=== PATIENT | male | born 1960 | race Caucasian/White ===

== ENCOUNTER 2017-02-22 12:24 | Emergency (ER) | payer OTHER, BC ==
[~2017-02-22] VITALS: Ht 177.8 cm; Wt 134.0 kg
[~2017-02-22 12:24] MED LIST: GLC500 PO; GLIM4TAB2 PO; LISI-786 PO; NAPR1TAB9 PO; POLY335019 PO; ZNTT/150 PO
[2017-02-22 12:30] VITALS: TEMP 36.6; Ht 177.8 cm; Wt 134.0 kg
[2017-02-22] MEDS ORDERED: METF-384 PO (12:35)
--- NOTE | 2017-02-22 12:57 | EMERGENCY ROOM VISIT NOTE ---
ED Visit Note First contact with patient: 12:41 CHIEF COMPLAINT: Right great toe pain HISTORY OF PRESENT ILLNESS: This 56-year-old male patient presents to the emergency department, ambulatory, from work, complaining of swelling and pain in the right great toe at rest and worse with weight bearing. The patient was using a 30 lb pipe wrench at work when he accidentally dropped it onto the top of his right great toe. The wrench fell approximately 2.5 feet. He immediately noticed pain and bruising in the right great toe at the IP joint and a hematoma under the nail. The patient rates the pain as throbbing at rest, sharp with weight-bearing and 2/10. The patient has not had relief of the pain, but states it is improving. He became concerned because he is diabetic and wants to ensure he does not have an infection. The patient is able to walk. No numbness or weakness. No ankle pain. There are no lacerations of the foot. The patient is able to move all of their toes and their ankle without pain. No previous fracture to this foot. REVIEW OF SYSTEMS: GENERAL: A 6 system review of systems was completed with positives and pertinent negatives in the HPI. ALLERGIES: Sulfa MEDICATIONS: glimepiride, lisinopril, miralax, ranitidine, metformin, Januvia PMH: DM, HTN, GERD SOCIAL HISTORY: The patient lives locally with family. 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 The patient does admit to chewing tobacco and smoking approximately 5 cigarettes per day. He denies drug and alcohol use. PHYSICAL EXAM: Vital Signs: Reviewed Nurse's notes, vital signs stable. GENERAL : This is a 56-year-old obese white male, in no acute distress, but appears in pain, well-developed, well-nourished. MUSCULOSKELATAL: There is no visual deformity of the right foot. There is mild erythema and ecchymosis over the IP joint of the right great toe with subungual hematoma. There is no warmth. There is tenderness and swelling over the right great toe. There is no tenderness over the lateral or medial malleolus. No tenderness of the tib/fib. The range of motion of the toes is full. There is no tenderness over the plantar fascia. The skin is intact and there are no lacerations or puncture wounds. Dorsalis pedis pulse 2+. Capillary refill less than 2 seconds. RADIOLOGY: X-Ray Right Great Toe: R TOE(S) MIN 2 VIEWS CLINICAL HISTORY: crush injury, right great toe trauma COMPARISON: None. DISCUSSION: Nondisplaced oblique fracture distal phalanx great toe. No evidence for dislocation. Mild soft tissue edema. IMPRESSION: Nondisplaced fracture distal phalanx great toe. Soft tissue edema. No evidence for dislocation. EMERGENCY DEPARTMENT COURSE: I examined the patient. An X-ray of the right great toe was reviewed by myself and radiologist and reveals nondisplaced fracture of the distal phalanx of the right great toe. The patient was placed in postop shoe and offered crutches. He declines and states he does have some crutches at home if he needs them. The patient was steady on his feet and the postop shoe. [employer] paperwork was completed and return to the patient. The patient was discharged home in good condition. DIFFERENTIAL DIAGNOSIS: Contusion, fracture, sprain, strain, and others DIAGNOSIS: Fracture of the distal phalange of the right great toe TREATMENT: ORTHOPEDIC INSTRUCTIONS: Ibuprofen(Motrin, Advil) may be used for fever or pain. Use 600mg every six hours as needed. Take with food. Avoid using more than 2400mg in a 24 hour period. Do not use 2400mg per day for more than three consecutive days without physician direction. Prolonged inappropriate use can lead to stomach upset or ulcers. (AND/OR) Acetaminophen(Tylenol) may be used for fever or pain. Use 1000mg every six hours as needed. Avoid using more than 3000mg in a 24 hour period. Ice compresses for 20 minutes at a time four times daily for 2-3 days. Use the crutches you have at home if needed to avoid weight-bearing. Rest and elevate your injury. Wear the post-op shoe until cleared by Worker's Comp/Orthopedics. Return to the ER immediately for any numbness, tingling, severe pain, extreme swelling in the extremity or as needed. Call [facility], [phone], today to arrange follow up for your injury. Follow-up as directed by your company with Worker's Compensation. Current/Historical Medications Scheduled Glimepiride (Glimepiride), 4 MG PO BID Lisinopril & Hydrochlorothiazi (Zestoretic), 1 TAB PO QAM Metformin Hcl (Glucophage), 1,000 MG PO BID Naproxen (Aleve), 440 MG PO PRN Scheduled PRN Polyethylene Glycol 3350 (Miralax), 17 GM PO DAILY PRN for Constipation Ranitidine (Zantac), 150 MG PO DAILY PRN for Indigestion Allergies Coded Allergies: Sulfa Drugs (Verified Allergy, Unknown, HIVES, 02/22/17) Vital Signs Date Time Temp Pulse Resp B/P (MAP) Pulse Ox O2 Delivery O2 Flow Rate FiO2 02/22/17 13:55 75 20 190/98 96 02/22/17 12:30 36.6 76 18 204/105 96 Room Air Departure Information Impression Primary Impression: Fracture of distal phalanx of right great toe Dispostion Home / Self-Care Condition GOOD Referrals No Doctor, Assigned (PCP) Patient Instructions ED Fx Toe Closed, [facility] Additional Instructions ORTHOPEDIC INSTRUCTIONS: Ibuprofen(Motrin, Advil) may be used for fever or pain. Use 600mg every six hours as needed. Take with food. Avoid using more than 2400mg in a 24 hour period. Do not use 2400mg per day for more than three consecutive days without physician direction. Prolonged inappropriate use can lead to stomach upset or ulcers. (AND/OR) Acetaminophen(Tylenol) may be used for fever or pain. Use 1000mg every six hours as needed. Avoid using more than 3000mg in a 24 hour period. Ice compresses for 20 minutes at a time four times daily for 2-3 days. Use the crutches you have at home if needed to avoid weight-bearing. Rest and elevate your injury. Wear the post-op shoe until cleared by Worker's Comp/Orthopedics. Return to the ER immediately for any numbness, tingling, severe pain, extreme swelling in the extremity or as needed. Call [facility], [phone], today to arrange follow up for your injury. Follow-up as directed by your company with Worker's Compensation. Work Instructions Return To Work: 1 day Problem Qualifiers Primary Impression: Fracture of distal phalanx of right great toe Encounter type: initial encounter Fracture type: closed Fracture alignment : nondisplaced Qualified Codes: S92.424A - Nondisplaced fracture of distal phalanx of right great toe, initial encounter for closed fracture
--- NOTE | 2017-02-22 13:29 | DIAGNOSTIC IMAGING REPORT ---
R TOE(S) MIN 2 VIEWS CLINICAL HISTORY: crush injury, right great toe trauma COMPARISON: None. DISCUSSION: Nondisplaced oblique fracture distal phalanx great toe. No evidence for dislocation. Mild soft tissue edema. IMPRESSION: Nondisplaced fracture distal phalanx great toe. Soft tissue edema. No evidence for dislocation. The above report was generated using voice recognition software. It may contain grammatical, syntax or spelling errors. Electronically signed by: William Gold M.D. 02/22/2017 1:28 PM Dictated Date/Time: 02/22/2017 1:27 PM
[2017-02-22 13:55] VITALS: BP 190/98; PULSE 75; O2SAT 96
== END 2017-02-22 14:03 | disposition home or self-care (01) ==
LOC: C.EDB 12:26 → C.EDD 14:03
DX: S92.424A Nondisplaced fracture of distal phalanx of right great toe, initial encounter for closed fracture (principal); W20.8XXA Other cause of strike by thrown, projected or falling object, initial encounter; Y99.0 Civilian activity done for income or pay; Y92.89 Other specified places as the place of occurrence of the external cause; Y93.89 Activity, other specified; Z79.899 Other long term (current) drug therapy; Z79.84 Long term (current) use of oral hypoglycemic drugs; E11.9 Type 2 diabetes mellitus without complications; I10 Essential (primary) hypertension; K21.9 Gastro-esophageal reflux disease without esophagitis; F17.210 Nicotine dependence, cigarettes, uncomplicated; F17.220 Nicotine dependence, chewing tobacco, uncomplicated